=== PATIENT | female | born 1940 | race Caucasian/White ===

== ENCOUNTER 2018-08-25 07:04 | Day surgery (SDC) | payer OTHER, BC ==
[2018-08-24 08:52] VITALS: BMI 35.7
[2018-08-25 08:42] VITALS: TEMP 97.8
[2018-08-25 13:20] VITALS: BP 130/60; PULSE 64
--- NOTE | 2018-08-28 17:01 | PATH ---
Surgical Pathology Report Patient Name: ADOLPH VARELA [facility]. Rec. #: [id number] /Age/Gender: 1940 (Age: 77) / F Account: [id number] Location: [facility]-ENDOSCOPY Taken: 08/25/2018 Received: 08/25/2018 Reported: 08/28/2018 Physicians: Louie Cox M.D. Specimen(s) Received A: BX GASTRIC ANTRUM B: DISTAL RIGHT COLON POLYP Clinical History Adenoma surveillance Postoperative diagnosis: Erosive gastritis, hiatal hernia, diverticulosis, right colon polyp, hemorrhoids Final Diagnosis A. STOMACH, ANTRUM, BIOPSY: GASTRIC ANTRAL MUCOSA WITH MILD CHRONIC FOCAL ACTIVE GASTRITIS. IMMUNOHISTOCHEMICAL STAIN FOR H. PYLORI IS NEGATIVE. B. DISTAL COLON, RIGHT, POLYP, POLYPECTOMY: TUBULAR ADENOMA. Electronically Signed Liana Vernon M.D. Gross Description A. Received in formalin, labeled "antrum" are 4 lizarraga, irregular portions of soft tissue ranging in size from 0.1-0.3 cm. in greatest dimension. The specimens are submitted in toto in one cassette. B. Received in formalin, labeled "distal right colon polyp" are 3 lizarraga, irregular portions of soft tissue ranging in size from 0.1-0.3 cm. in greatest dimension. The specimens are submitted in toto in one cassette. MLSZ/08/25/2018 sanml/08/25/2018
== END 2018-08-25 09:40 | disposition home or self-care (01) ==
LOC: JASU-ENDO 07:04
PROVIDERS: ATTEND Internal Medicine Gastroenterology
PROC: 0DB68ZX Excision of Stomach, Via Natural or Artificial Opening Endoscopic, Diagnostic (ICD-10-PCS; 2018-08-25)
PROC: 0DBK8ZX Excision of Ascending Colon, Via Natural or Artificial Opening Endoscopic, Diagnostic (ICD-10-PCS; principal; 2018-08-25 08:00)
DX: Z12.11 Encounter for screening for malignant neoplasm of colon (principal); Z86.010 Personal history of colon polyps; D64.9 Anemia, unspecified; K63.5 Polyp of colon; K57.30 Diverticulosis of large intestine without perforation or abscess without bleeding; K21.9 Gastro-esophageal reflux disease without esophagitis; K44.9 Diaphragmatic hernia without obstruction or gangrene; K29.00 Acute gastritis without bleeding
CPT/HCPCS: 88305-TC; 88342-TC